=== PATIENT | female | born 1980 | race Caucasian/White ===

== ENCOUNTER 2019-02-27 08:01 | Emergency (ER) | payer SELFPAY, BC ==
[2019-02-27] MEDS: OXYCODONE/ACETAMINOPHEN (5/325) TAB PO (08:42)
== END 2019-02-27 09:25 | disposition home or self-care (01) ==
LOC: FTE 08:01
DX: B02.9 Zoster without complications (principal)
CPT/HCPCS: 81025; 99283